=== PATIENT | male | born 1970 | race Caucasian/White ===

== ENCOUNTER 2021-02-06 19:26 | Emergency (ER) | payer SELFPAY ==
[~2021-02-06] VITALS: Ht 175.3 cm; Wt 86.2 kg
[2021-02-06] MEDS ORDERED: PROCHLORPERAZINE EDISYLATE 10 MG/2 ML VIAL IM ONE (19:45)
[2021-02-06] MEDS ORDERED: PROCHLORPERAZINE EDISYLATE 10 MG/2 ML VIAL ONE (19:46)
[2021-02-06] MEDS ORDERED: ONDANSETRON 4 MG/2 ML VIAL IV ONE (20:45)
[2021-02-06] MEDS ORDERED: ONDANSETRON 4 MG/2 ML VIAL ONE (21:05)
[2021-02-06 22:12] LABS: HEMATOCRIT 44.8 % (36.7-47.1); MEAN CORPUSCULAR VOLUME 88.3 fL (73.0-96.2); PLATELET COUNT (AUTO) 288 K/uL (152-348)
[2021-02-06 22:23] LABS: ETHANOL < 3 MG/DL (0-0)
[2021-02-06 23:20] LABS: ALANINE AMINOTRANSFERASE 61 U/L (16-63); ALKALINE PHOSPHATASE 79 U/L (50-136); ASPARTATE AMINOTRANSFERASE 70 U/L (15-37); BILIRUBIN,DIRECT 0.4 mg/dL (0.0-0.2); BILIRUBIN,TOTAL 0.9 mg/dL (0.2-1.0); CARBON DIOXIDE 34 mmol/L (21-32); CHLORIDE 98 mmol/L (98-107); CREATININE 1.1 mg/dL (0.6-1.3); GLUCOSE 96 mg/dL (74-106); POTASSIUM 3.7 mmol/L (3.5-5.1); TOTAL PROTEIN, SERUM 7.9 g/dL (6.4-8.2); UREA NITROGEN, BLOOD 10 mg/dL (7-18)
[2021-02-06 23:25] LABS: *BILIRUBIN,URIN NEGATIVE (NEGATIVE); *BLOOD, URINE NEGATIVE (NEGATIVE); *CLARITY,URINE CLEAR (CLEAR); *COLOR,URINE YELLOW (YELLOW); *KETONES,URINE NEGATIVE (NEGATIVE); *UROBILINOGEN,URINE 0.2 E.U./dl (NORMAL); LEUKOCYTE ESTERASE ,URINE NEGATIVE (NEGATIVE); NITRITE, URINE NEGATIVE (NEGATIVE); UGLUCOSE NEGATIVE (NEGATIVE)
[2021-02-06 23:26] LABS: ACETAMINOPHEN < 2.0 ug/mL (10-30)
[2021-02-06 23:38] LABS: *AMPHETAMINE, URINE POSITIVE (NEGATIVE); *CANNABINOID, URINE POSITIVE (NEGATIVE); *COCCAINE, URINE NEGATIVE (NEGATIVE); *OPIATE, URINE POSITIVE (NEGATIVE); *PHENCYCLIDINE SCREEN,URINE NEGATIVE (NEGATIVE)
[2021-02-07] MEDS ORDERED: NALO4SPR NS (00:11)
--- NOTE | 2021-02-07 02:00 | NUR ---
Kerry HAIRSTON RA from home for OD on unknown substance. Per report his girlfriend gave him 16mg of Narcan at home. Patient upon arrival to ER awake, answering question. Patient constantly vomting and having diarrhea. Patient ambulatory with steady gait.
--- NOTE | 2021-02-07 02:30 | NUR ---
Patient 02 RA is 85%. Placed on 2liter N/C and 02 went up to 97%.
--- NOTE | 2021-02-07 04:00 | NUR ---
Patient sleeping with no distress noted.
--- NOTE | 2021-02-07 06:02 | NUR ---
Patient awake with no distress noted. 02 Sats on RA is 96%.
--- NOTE | 2021-02-07 07:06 | NUR ---
IV removed. Catheter intact and site benign. Pressure and 4x4 gauze applied to site. No bleeding noted.
[2021-02-07 07:10] VITALS: BP 128/75
--- NOTE | 2021-02-07 07:10 | NUR ---
Patient discharged to home in stable condition with friend taking patient home. Written and verbal after care instructions given. Patient verbalizes understanding of instructions. Stressed follow up or return to ER for worsening s/s.
== END 2021-02-07 07:11 | disposition home or self-care (01) ==
LOC: ER 19:28
DX: T40.411A Poisoning by fentanyl or fentanyl analogs, accidental (unintentional), initial encounter (principal); T40.1X1A Poisoning by heroin, accidental (unintentional), initial encounter; R11.2 Nausea with vomiting, unspecified; F11.10 Opioid abuse, uncomplicated; Y92.480 Sidewalk as the place of occurrence of the external cause; Z86.19 Personal history of other infectious and parasitic diseases; F17.210 Nicotine dependence, cigarettes, uncomplicated; R94.31 Abnormal electrocardiogram [ECG] [EKG]; R03.0 Elevated blood-pressure reading, without diagnosis of hypertension; F15.10 Other stimulant abuse, uncomplicated
CPT/HCPCS: 36415; 71045; 80048; 80076; 80299; 80307; 80320; 81003; 85025; 93005; 96372; 96374; 99285; 99406; J0780; J2405; A4663; G0480